=== PATIENT | male | born 1975 | race Caucasian/White ===

== ENCOUNTER 2017-03-10 11:16 | Emergency (ER) | payer OTHER ==
[2017-03-10 11:37] VITALS: RESP 16; TEMP 98.2
[2017-03-10] MEDS ORDERED: NS 1,000 ML IV ONE (11:39)
[2017-03-10] MEDS ORDERED: ONDANSETRON 4 MG/2 ML VIAL IVP ONE (11:39)
[2017-03-10 11:58] LABS: % IMMATURE GRANULYOCYTES 0.2 % (0.0-1.1); ABSOLUTE IMMATURE GRANULOCYTES 0.02 10^3/uL (0.00-0.10); ADD DIFF? NO; ADD MORPH? NO; ADD SCAN? NO; ATYPICAL LYMPHOCYTE FLAG 0 (0-99); FRAGMENT RBC FLAG 0 (0-99); HEMATOCRIT 42.2 % (40.0-51.0); HEMOGLOBIN 15.6 g/dL (13.7-17.5); LEFT SHIFT FLG 10 (0-99); LIPEMIA HEMOLYSIS FLAG 90 (0-99); MEAN CELL HEMOGLOBIN 34.9 pg (27.9-34.1); MEAN CELL VOLUME 94.4 fL (81.5-99.8); MEAN PLATELET VOLUME 10.6 fL (8.7-11.7); PLATELET CLUMPS FLAG 0 (0-99); PLATELET COUNT 77 10^3/uL (150-400); RED BLOOD CELL COUNT 4.47 10^6/uL (4.40-6.38); RED CELL DISTRIBUTION WIDTH 16.3 % (11.5-15.2)
[2017-03-10 12:11] VITALS: O2SAT 96
[2017-03-10 12:21] LABS: ALANINE AMINOTRANSFERASE 46 IU/L (21-72); ALBUMIN 3.9 g/dL (3.5-5.0); ALKALINE PHOSPHATASE 213 IU/L (38-126); ANION GAP 13 mEq/L (8-16); ASPARTATE AMINOTRANSFERASE 94 IU/L (17-59); BILIRUBIN,TOTAL 11.8 mg/dL (0.1-1.4); CARBON DIOXIDE 18 mEq/l (22-31); CHLORIDE 103 mEq/L (97-110); CREATININE 0.8 mg/dL (0.7-1.3); GLOMERULAR FILTRATION RATE > 60; GLUCOSE 107 mg/dL (70-100); POTASSIUM 3.9 mEq/L (3.5-5.2); SODIUM 134 mEq/L (134-144); TOTAL PROTEIN 8.2 g/dL (6.3-8.2)
[2017-03-10 12:33] LABS: BILIRUBIN-UNCONJUGATED 5.8 mg/dL (0.0-1.1)
--- NOTE | 2017-03-10 12:50 | EDPHY ---
H & P Time Seen by Provider: 03/10/17 11:27 HPI/ROS: 41 yo M presents c/o nausea for the last several days. He states he quit drinking several months ago, but drank heavily last monday with friends for the [employer] game. Later he admitted he drinks daily, he has a prior hx of esophageal varices and is here for nausea but mainly to get a work note. Review of systems General no fever no chills no weakness HEENT no eye pain no eye discharge. pos eye redness, no sore throat Respiratory no cough, no shortness of breath Cardiac no chest pain, no peripheral edema GI no abdominal pain, no diarrhea, no constipation,pos nausea, no vomiting no flank pain, no hematuria, no dysuria Musculoskeletal no myalgias, no joint pain Heme positive easy bruising and easy bleeding Endo no polyuria, no polydipsia Skin no rashes, no pruritus Neuro no syncope, no dizziness, no headaches Psych is no suicidal ideation, no homicidal ideation, history of alcohol abuse Past Medical/Surgical History: alcohol abuse esophageal varices likely cirrhosis-end stage, cannot verify today Social History: uses tobacco and drinks daily denies other drug use Smoking Status: Former smoker Physical Exam: 41 yo M alert and oriented mildly tremulous at, nc eomi conjunctivae incteric neck supple lungs cta bilat heart rapid rr 110 abd non dist , bs present, soft , enlarged liver 6 cm bcm, non tender,no pulsatile mass no appreciable fluid wave ext no cce skin icteric Constitutional: Initial Vital Signs Temperature (C) 36.8 C 03/10/17 11:35 Heart Rate 104 H 03/10/17 11:35 Respiratory Rate 16 03/10/17 11:35 Blood Pressure 152/99 H 03/10/17 11:35 O2 Sat (%) 97 03/10/17 11:35 O2 Delivery Mode Room Air Allergies/Adverse Reactions: No Known Allergies Allergy (Unverified 03/10/17 11:37) Home Medications: Medication Instructions Recorded NK [No Known Home Meds] 03/10/17 Medical Decision Making - Diagnostics Imaging Results: Imaging Impressions Chest X-Ray 03/10/17 12:29 Impression: Minimal perihilar bronchitis, with no focal infiltrate. ED Course/Re-evaluation: pt here for nausea and work note Pt appeared to be in mild alcohol withdrawal IV established, labs sent and fluids with ondansetron given nausea improved labs remarkable for conjugated hyperbilirubinemia, and thrombocytopenia concerning for cirrhosis or acute hepatitis or acute on chronic hepatitic requested ultrasound to karie burris, liver, to rule out choledocolithiasis pt refusing, signed AMA His plan is to cut back on drinking and follow up with his pcp While he signed out against advice , he was educated on the severity of his illness and that should he have any signs of bleeding, pain, fevers, that he should re-present to be evaluated and possibly admitted to the hospital. - Data Points Laboratory Results: Laboratory Results 03/10/17 11:50 03/10/17 11:50 03/10/17 03/10/17 11:50 11:50 WBC 8.82 10^3/uL 10^3/uL (3.80-9.50) RBC 4.47 10^6/uL 10^6/uL (4.40-6.38) Hgb 15.6 g/dL g/dL (13.7-17.5) Hct 42.2 % % (40.0-51.0) MCV 94.4 fL fL (81.5-99.8) MCH 34.9 pg H pg (27.9-34.1) MCHC 37.0 g/dL H g/dL (32.4-36.7) RDW 16.3 % H % (11.5-15.2) Plt Count 77 10^3/uL L 10^3/uL (150-400) MPV 10.6 fL fL (8.7-11.7) Neut % (Auto) 77.8 % H % (39.3-74.2) Lymph % (Auto) 8.3 % L % (15.0-45.0) [place] % (Auto) 11.0 % % (4.5-13.0) Eos % (Auto) 1.9 % % (0.6-7.6) Baso % (Auto) 0.8 % % (0.3-1.7) Nucleat RBC Rel Count 0.0 % % (0.0-0.2) Absolute Neuts (auto) 6.86 10^3/uL H 10^3/uL (1.70-6.50) Absolute Lymphs (auto) 0.73 10^3/uL L 10^3/uL (1.00-3.00) Absolute Monos (auto) 0.97 10^3/uL H 10^3/uL (0.30-0.80) Absolute Eos (auto) 0.17 10^3/uL 10^3/uL (0.03-0.40) Absolute Basos (auto) 0.07 10^3/uL 10^3/uL (0.02-0.10) Absolute Nucleated RBC 0.00 10^3/uL 10^3/uL (0-0.01) Immature Gran % 0.2 % % (0.0-1.1) Immature Gran # 0.02 10^3/uL 10^3/uL (0.00-0.10) Sodium 134 mEq/L mEq/L (134-144) Potassium 3.9 mEq/L mEq/L (3.5-5.2) Chloride 103 mEq/L mEq/L (97-110) Carbon Dioxide 18 mEq/l L mEq/l (22-31) Anion Gap 13 mEq/L mEq/L (8-16) BUN 7 mg/dL mg/dL (7-23) Creatinine 0.8 mg/dL mg/dL (0.7-1.3) Estimated GFR > 60 Glucose 107 mg/dL H mg/dL (70-100) Calcium 9.0 mg/dL mg/dL (8.5-10.4) Total Bilirubin 11.8 mg/dL H mg/dL (0.1-1.4) Conjugated Bilirubin 6.0 mg/dL H mg/dL (0.0-0.5) Unconjugated Bilirubin 5.8 mg/dL H mg/dL (0.0-1.1) AST 94 IU/L H IU/L (17-59) ALT 46 IU/L IU/L (21-72) Alkaline Phosphatase 213 IU/L H IU/L (38-126) Total Protein 8.2 g/dL g/dL (6.3-8.2) Albumin 3.9 g/dL g/dL (3.5-5.0) Lipase 301 IU/L H IU/L (23-300) Medications Given: Discontinued Medications Sodium Chloride (Ns) 1,000 mls @ 0 mls/hr IV ONCE ONE PRN Reason: Wide Open Stop: 03/10/17 11:40 Last Admin: 03/10/17 12:01 Dose: 1,000 mls Ondansetron HCl (Zofran) 4 mg IVP EDNOW ONE Stop: 03/10/17 11:40 Last Admin: 03/10/17 12:01 Dose: 4 mg Departure - Departure Disposition: Home, Routine, Self-Care Clinical Impression: Alcohol withdrawal, Hyperbilirubinemia Condition: Fair Instructions: Cirrhosis (ED), Alcohol Withdrawal (ED), Jaundice (ED) Referrals: NONE *PRIMARY CARE P,. [Primary Care Provider] - As per Instructions Stand Alone Forms: Work Excuse
[2017-03-10 13:24] VITALS: BP 158/92; PULSE 96
== END 2017-03-10 13:21 | disposition home or self-care (01) ==
LOC: CED 11:16
DX: E80.6 Other disorders of bilirubin metabolism (principal); F10.239 Alcohol dependence with withdrawal, unspecified; Z87.891 Personal history of nicotine dependence
CPT/HCPCS: 71020-PO; 80053-PO; 82248-PO; 83690-PO; 85025-PO; 96374; G0472; J2405